=== PATIENT | female | born 1990 | race Caucasian/White ===

== ENCOUNTER 2020-12-26 22:09 | Emergency (ER) | payer MEDICARE, OTHER ==
[~2020-12-26] VITALS: Ht 170.2 cm; Wt 81.8 kg
[~2020-12-26 22:09] MED LIST: HALO10 PO; LITH300C3 PO
[2020-12-26 23:05] LABS: BASOPHILS % (AUTO) 0.3 % (0.0-2.0); HEMATOCRIT 38.7 % (36-46); HEMOGLOBIN 12.7 g/dL (12.0-16.0); LYMPHOCYTES # (AUTO) 2.9 K/uL (1.0-4.8); LYMPHOCYTES % (AUTO) 29.7 % (22.0-44.0); MEAN CORPUSCULAR HEMOGLOBIN 31.4 pg (26.0-34.0); MEAN CORPUSCULAR HGB CONC 32.9 G/dL (31.0-37.0); MEAN CORPUSCULAR VOLUME 95 fL (80-100); MONOCYTES # (AUTO) 0.9 K/uL (0.1-1.0); MONOCYTES % (AUTO) 8.7 % (2.0-9.0); NEUTROPHILS # (AUTO) 5.7 K/uL (1.8-7.7); NEUTROPHILS % (AUTO) 58.3 % (40.0-70.0); PLATELET COUNT (AUTO) 149 K/uL (150-450); RED BLOOD CELL COUNT(AUTO) 4.05 MIL/uL (4.00-5.20); RED CELL DISTRIBUTION WIDTH 14.1 % (11.5-14.5)
[2020-12-26] MEDS ORDERED: HALOPERIDOL 5 MG TABLET PO ONE (23:15)
[2020-12-26 23:16] LABS: ANION GAP 4 mmol/L (8-16); CALCIUM, TOTAL 8.9 mg/dL (8.8-10.5); CARBON DIOXIDE 29 mmol/L (22-29); CHLORIDE 100 mmol/L (98-107); CREATININE 1.07 mg/dL (0.60-1.30); GLOMERULAR FILTR. RATE CALC 60 mL/min (>60); GLUCOSE,RANDOM 116 mg/dL (70-110); POTASSIUM 3.7 mmol/L (3.5-5.1); SODIUM SERUM 133 mmol/L (136-145); UREA NITROGEN, BLOOD 19 mg/dL (7-18)
[2020-12-26 23:22] LABS: ALANINE AMINOTRANSFERASE 69 U/L (12-78); ALBUMIN 3.2 g/dL (3.4-5.0); ALKALINE PHOSPHATASE 64 U/L (46-116); ASPARTATE AMINOTRANSFERASE 46 U/L (15-37); BILIRUBIN,TOTAL 0.4 mg/dL (0.1-1.0); TOTAL PROTEIN, SERUM 6.7 g/dL (6.4-8.2)
[2020-12-26 23:24] LABS: LITHIUM 1.09 mmol/L (0.60-1.20)
[2020-12-27 00:16] VITALS: BP 116/78
== END 2020-12-27 00:42 | disposition home or self-care (01) ==
LOC: EMS 22:11
DX: F31.9 Bipolar disorder, unspecified (principal); F20.9 Schizophrenia, unspecified; Z79.899 Other long term (current) drug therapy
CPT/HCPCS: 36415; 80053; 80178; 85025; 99284; G0480

== ENCOUNTER 2021-05-18 17:26 | Inpatient (IN) | payer MEDICARE, MEDICAID ==
[~2021-05-18] VITALS: Ht 170.2 cm; Wt 86.4 kg
[2021-05-18] MEDS ORDERED: LORazepam 2 MG/ML VIAL IM ONE (18:30)
[2021-05-18] MEDS ORDERED: HALOPERIDOL LACTATE 5 MG/ML VIAL IM ONE (18:30)
[2021-05-18] MEDS ORDERED: DiphenhydrAMINE HCL 50 MG/ML VIAL IM ONE (18:30)
[2021-05-18 20:42] LABS: BASOPHILS % (AUTO) 0.4 % (0.0-2.0); EOSINOPHILS % (AUTO) 0.7 % (1.0-6.0); HEMATOCRIT 36.6 % (36-46); HEMOGLOBIN 12.1 g/dL (12.0-16.0); LYMPHOCYTES # (AUTO) 4.2 K/uL (1.0-4.8); LYMPHOCYTES % (AUTO) 39.7 % (22.0-44.0); MEAN CORPUSCULAR HEMOGLOBIN 31.7 pg (26.0-34.0); MEAN CORPUSCULAR HGB CONC 33.1 G/dL (31.0-37.0); MEAN CORPUSCULAR VOLUME 96 fL (80-100); MONOCYTES # (AUTO) 0.9 K/uL (0.1-1.0); MONOCYTES % (AUTO) 8.3 % (2.0-9.0); NEUTROPHILS # (AUTO) 5.3 K/uL (1.8-7.7); NEUTROPHILS % (AUTO) 50.9 % (40.0-70.0); PLATELET COUNT (AUTO) 218 K/uL (150-450); RED BLOOD CELL COUNT(AUTO) 3.82 MIL/uL (4.00-5.20); RED CELL DISTRIBUTION WIDTH 13.2 % (11.5-14.5)
[2021-05-18] MEDS ORDERED: ZOLPIDEM TARTRATE 10 MG TABLET PO PRN (21:00)
[2021-05-18 21:17] LABS: ANION GAP 3 mmol/L (8-16); CALCIUM, TOTAL 8.8 mg/dL (8.8-10.5); CARBON DIOXIDE 25 mmol/L (22-29); CHLORIDE 109 mmol/L (98-107); CREATININE 0.66 mg/dL (0.60-1.30); GLOMERULAR FILTR. RATE CALC > 60 mL/min (>60); GLUCOSE,RANDOM 93 mg/dL (70-110); SODIUM SERUM 137 mmol/L (136-145); UREA NITROGEN, BLOOD 28 mg/dL (7-18)
[2021-05-18 21:23] LABS: ALANINE AMINOTRANSFERASE 23 U/L (12-78); ALBUMIN 2.9 g/dL (3.4-5.0); ALKALINE PHOSPHATASE 64 U/L (46-116); ASPARTATE AMINOTRANSFERASE 21 U/L (15-37); BILIRUBIN,TOTAL 0.2 mg/dL (0.1-1.0); TOTAL PROTEIN, SERUM 6.6 g/dL (6.4-8.2)
[2021-05-18 22:01] LABS: COVID AG,FIA SOURCE NASOPHARYNGEAL
[2021-05-19 05:44] LABS: CHOL/HDL RATIO 3.8 (3.9-5.7); CHOLESTEROL 165 mg/dL (131-200); HDL CHOLESTEROL 44 mg/dL (40-60); LDL CHOL (CALC.) 89 mg/dL (0-130); TRIGLYCERIDES 161 mg/dL (15-150)
[2021-05-19] MEDS ORDERED: ALBUTEROL SULFATE HFA 90 MCG/PUFF 8 GM INHALER IH ONE (05:49)
[2021-05-19 10:23] VITALS: BP 88/69
[2021-05-19] MEDS ORDERED: PALIPERIDONE PALMITATE 234 MG/1.5 ML SYRINGE IM ONE (10:45)
[2021-05-19] MEDS ORDERED: MAG HYDROX/AL HYDROX/SIMETH ES 30 ML SUSPENSION UDCUP PO PRN (10:45)
[2021-05-19] MEDS ORDERED: GuaiFENesin/D-METHORPHAN [SUGAR-FREE] 200-20MG/10 ML SYRUP UDCUP PO PRN (10:45)
[2021-05-19] MEDS ORDERED: PROMETHAZINE HCL 25 MG TABLET PO PRN (10:45)
[2021-05-19] MEDS ORDERED: LOPERAMIDE HCL 2 MG CAPSULE PO PRN (10:45)
[2021-05-19] MEDS ORDERED: TUBERCULIN, PURIFIED PROTEIN DERIVATIVE 5 TU/0.1 ML SYRINGE ID ONE (10:45)
[2021-05-19] MEDS: OLANZapine 5 MG RAPDIS TABLET PO PRN (12:36)
[2021-05-19] MEDS: LORazepam 2 MG TABLET PO PRN (12:36)
[2021-05-19] MEDS ORDERED: HALOPERIDOL LACTATE 5 MG/ML VIAL IM ONE (14:15)
[2021-05-19] MEDS ORDERED: DiphenhydrAMINE HCL 50 MG/ML VIAL IM ONE (14:15)
[2021-05-19] MEDS ORDERED: LORazepam 2 MG/ML VIAL IM ONE (14:15)
[2021-05-19] MEDS ORDERED: INFLUENZA VIRUS VACCINE QVS 2021-22 (6MO+)/PF 60 MCG/0.5 ML SYRINGE IM. ONE (16:15)
[2021-05-19 16:23] VITALS: BP 109/72
[2021-05-19] MEDS: THIAMINE 100 MG TABLET PO SCH (17:23)
[2021-05-19] MEDS: LITHIUM CARBONATE 300 MG CAPSULE PO SCH (17:24)
[2021-05-19] MEDS: MELATONIN 5 MG TABLET PO SCH (20:47)
[2021-05-19] MEDS ORDERED: OLANZapine 5 MG RAPDIS TABLET PO SCH (21:00)
[2021-05-20 00:37] VITALS: BP 101/69
[2021-05-20 07:45] LABS: BASOPHILS % (AUTO) 0.2 % (0.0-2.0); EOSINOPHILS % (AUTO) 0.9 % (1.0-6.0); HEMATOCRIT 38.4 % (36-46); HEMOGLOBIN 12.5 g/dL (12.0-16.0); LYMPHOCYTES % (AUTO) 23.7 % (22.0-44.0); MEAN CORPUSCULAR HEMOGLOBIN 31.1 pg (26.0-34.0); MEAN CORPUSCULAR HGB CONC 32.6 G/dL (31.0-37.0); MEAN CORPUSCULAR VOLUME 96 fL (80-100); MONOCYTES % (AUTO) 8.2 % (2.0-9.0); NEUTROPHILS # (AUTO) 8.3 K/uL (1.8-7.7); PLATELET COUNT (AUTO) 209 K/uL (150-450); RED BLOOD CELL COUNT(AUTO) 4.01 MIL/uL (4.00-5.20); RED CELL DISTRIBUTION WIDTH 13.1 % (11.5-14.5)
[2021-05-20] MEDS: OMEGA-3/DHA/EPA/FISH OIL 1,000 MG CAPSULE PO SCH (08:07)
[2021-05-20 08:08] LABS: HEMOGLOBIN A1C 5.1 % (3.8-5.6)
[2021-05-20] MEDS: MULTIVITAMINS WITH MINERALS, THERAPEUTIC TABLET PO SCH (08:08)
[2021-05-20] MEDS: FOLIC ACID 1 MG TABLET PO SCH (08:08)
[2021-05-20] MEDS: THIAMINE 100 MG TABLET PO SCH ×2 (08:08→16:27)
[2021-05-20] MEDS: LITHIUM CARBONATE 300 MG CAPSULE PO SCH ×2 (08:08→16:27)
[2021-05-20 08:22] LABS: ALANINE AMINOTRANSFERASE 29 U/L (12-78); ALKALINE PHOSPHATASE 63 U/L (46-116); ANION GAP 11 mmol/L (8-16); ASPARTATE AMINOTRANSFERASE 28 U/L (15-37); BILIRUBIN,TOTAL 0.5 mg/dL (0.1-1.0); CALCIUM, TOTAL 8.8 mg/dL (8.8-10.5); CARBON DIOXIDE 24 mmol/L (22-29); CHLORIDE 106 mmol/L (98-107); CHOL/HDL RATIO 4.1 (3.9-5.7); CHOLESTEROL 181 mg/dL (131-200); CREATININE 0.58 mg/dL (0.60-1.30); FREE T4 (FREE THYROXINE) 0.84 ng/dL (0.76-1.46); GLOMERULAR FILTR. RATE CALC > 60 mL/min (>60); GLUCOSE,RANDOM 83 mg/dL (70-110); HCG,QUANTITATIVE < 1 mIU/mL (0-6); HDL CHOLESTEROL 44 mg/dL (40-60); LDL CHOL (CALC.) 108 mg/dL (0-130); POTASSIUM 4.5 mmol/L (3.5-5.1); SODIUM SERUM 141 mmol/L (136-145); THYROID STIMULATING HORMONE 1.39 uIU/mL (0.36-3.74); TOTAL PROTEIN, SERUM 6.6 g/dL (6.4-8.2); TRIGLYCERIDES 143 mg/dL (15-150); UREA NITROGEN, BLOOD 19 mg/dL (7-18)
[2021-05-20] MEDS: OLANZapine 5 MG RAPDIS TABLET PO PRN ×2 (08:46→17:22)
[2021-05-20] MEDS: LORazepam 2 MG TABLET PO PRN ×2 (08:46→16:27)
[2021-05-20 08:47] VITALS: BP 121/84
[2021-05-20] MEDS: PHENYLEPHRINE/SHK LV/MIN OIL/PET 57 GM OINTMENT TP PRN (13:45)
[2021-05-20 16:17] VITALS: BP 100/60
[2021-05-20] MEDS: MAGNESIUM HYDROXIDE SUSPENSION 30 ML UDCUP PO PRN (16:34)
[2021-05-20] MEDS ORDERED: HALOPERIDOL LACTATE 5 MG/ML VIAL ONE (17:44)
[2021-05-20] MEDS ORDERED: DiphenhydrAMINE HCL 50 MG/ML VIAL IM ONE (17:45)
[2021-05-20] MEDS ORDERED: LORazepam 2 MG/ML VIAL IM ONE (17:45)
[2021-05-20] MEDS ORDERED: HALOPERIDOL LACTATE 5 MG/ML VIAL IM ONE (17:45)
[2021-05-20] MEDS: MELATONIN 5 MG TABLET PO SCH (20:27)
[2021-05-21 00:54] VITALS: BP 112/72
[2021-05-21] MEDS: PHENYLEPHRINE/SHK LV/MIN OIL/PET 57 GM OINTMENT TP PRN (06:23)
[2021-05-21 08:20] VITALS: BP 95/60
[2021-05-21] MEDS: FOLIC ACID 1 MG TABLET PO SCH (08:42)
[2021-05-21] MEDS: OMEGA-3/DHA/EPA/FISH OIL 1,000 MG CAPSULE PO SCH (08:42)
[2021-05-21] MEDS: MULTIVITAMINS WITH MINERALS, THERAPEUTIC TABLET PO SCH (08:43)
[2021-05-21] MEDS: THIAMINE 100 MG TABLET PO SCH ×2 (08:43→16:57)
[2021-05-21] MEDS: LITHIUM CARBONATE 300 MG CAPSULE PO SCH ×2 (08:44→16:57)
[2021-05-21] MEDS: OLANZapine 5 MG RAPDIS TABLET PO PRN ×3 (08:45→20:12)
[2021-05-21] MEDS: MAGNESIUM HYDROXIDE SUSPENSION 30 ML UDCUP PO PRN (09:05)
[2021-05-21] MEDS: LORazepam 2 MG TABLET PO PRN (11:47)
[2021-05-21] MEDS: HydrOXYzine PAMOATE 50 MG CAPSULE PO PRN ×2 (11:47→16:57)
[2021-05-21] MEDS: GABAPENTIN 300 MG CAPSULE PO PRN (16:05)
[2021-05-21 16:36] VITALS: BP 110/75
[2021-05-21] MEDS: MELATONIN 5 MG TABLET PO SCH (20:12)
[2021-05-22] MEDS: HydrOXYzine PAMOATE 50 MG CAPSULE PO PRN ×3 (01:50→23:48)
[2021-05-22] MEDS: OLANZapine 5 MG RAPDIS TABLET PO PRN ×2 (01:50→20:31)
[2021-05-22 02:41] VITALS: BP 106/62
[2021-05-22 08:01] LABS: BASOPHILS % (AUTO) 0.4 % (0.0-2.0); EOSINOPHILS % (AUTO) 0.9 % (1.0-6.0); HEMATOCRIT 36.5 % (36-46); HEMOGLOBIN 12.3 g/dL (12.0-16.0); LYMPHOCYTES % (AUTO) 32.6 % (22.0-44.0); MEAN CORPUSCULAR HGB CONC 33.6 G/dL (31.0-37.0); MEAN CORPUSCULAR VOLUME 95 fL (80-100); MONOCYTES # (AUTO) 0.7 K/uL (0.1-1.0); MONOCYTES % (AUTO) 7.3 % (2.0-9.0); NEUTROPHILS # (AUTO) 5.3 K/uL (1.8-7.7); NEUTROPHILS % (AUTO) 58.8 % (40.0-70.0); PLATELET COUNT (AUTO) 207 K/uL (150-450); RED BLOOD CELL COUNT(AUTO) 3.83 MIL/uL (4.00-5.20); RED CELL DISTRIBUTION WIDTH 12.9 % (11.5-14.5)
[2021-05-22] MEDS: FOLIC ACID 1 MG TABLET PO SCH (08:15)
[2021-05-22] MEDS: MULTIVITAMINS WITH MINERALS, THERAPEUTIC TABLET PO SCH (08:15)
[2021-05-22] MEDS: THIAMINE 100 MG TABLET PO SCH ×2 (08:15→16:55)
[2021-05-22] MEDS: OMEGA-3/DHA/EPA/FISH OIL 1,000 MG CAPSULE PO SCH (08:15)
[2021-05-22] MEDS: LITHIUM CARBONATE 300 MG CAPSULE PO SCH ×2 (08:15→16:55)
[2021-05-22 08:31] VITALS: BP 118/67
[2021-05-22] MEDS ORDERED: CloZAPine 25 MG TABLET PO SCH (09:00)
[2021-05-22] MEDS: MAGNESIUM HYDROXIDE SUSPENSION 30 ML UDCUP PO PRN (10:12)
[2021-05-22] MEDS: GABAPENTIN 300 MG CAPSULE PO PRN (13:53)
[2021-05-22 16:22] VITALS: BP 111/73
[2021-05-22] MEDS: ACETAMINOPHEN 325 MG TABLET PO PRN (17:18)
[2021-05-22] MEDS: GABAPENTIN 400 MG CAPSULE PO SCH (17:18)
[2021-05-22] MEDS: MELATONIN 5 MG TABLET PO SCH (20:31)
[2021-05-22] MEDS: NICOTINE POLACRILEX 2 MG LOZENGE PO PRN (20:32)
[2021-05-23] MEDS: OLANZapine 5 MG RAPDIS TABLET PO PRN ×3 (00:31→12:32)
[2021-05-23 01:59] VITALS: BP 108/71
[2021-05-23] MEDS: OMEGA-3/DHA/EPA/FISH OIL 1,000 MG CAPSULE PO SCH (08:24)
[2021-05-23] MEDS: LITHIUM CARBONATE 300 MG CAPSULE PO SCH ×3 (08:24→16:24)
[2021-05-23] MEDS: FOLIC ACID 1 MG TABLET PO SCH (08:25)
[2021-05-23] MEDS: GABAPENTIN 400 MG CAPSULE PO SCH ×3 (08:25→16:24)
[2021-05-23] MEDS: THIAMINE 100 MG TABLET PO SCH ×2 (08:25→16:24)
[2021-05-23] MEDS: MULTIVITAMINS WITH MINERALS, THERAPEUTIC TABLET PO SCH (08:25)
[2021-05-23] MEDS ORDERED: PALIPERIDONE PALMITATE 156 MG/ML SYRINGE IM ONE (09:00)
[2021-05-23] MEDS ORDERED: CloZAPine 25 MG TABLET PO SCH ×2 (09:00→21:00)
[2021-05-23] MEDS: HydrOXYzine PAMOATE 50 MG CAPSULE PO PRN ×2 (10:08→14:30)
[2021-05-23] MEDS: ACETAMINOPHEN 325 MG TABLET PO PRN (14:30)
[2021-05-23] MEDS: MELATONIN 5 MG TABLET PO SCH (20:27)
[2021-05-24 00:12] VITALS: BP 100/73
[2021-05-24] MEDS: HydrOXYzine PAMOATE 50 MG CAPSULE PO PRN (03:23)
[2021-05-24] MEDS: ACETAMINOPHEN 325 MG TABLET PO PRN (06:29)
[2021-05-24] MEDS: GABAPENTIN 400 MG CAPSULE PO SCH ×3 (08:44→15:56)
[2021-05-24] MEDS: LITHIUM CARBONATE 300 MG CAPSULE PO SCH ×3 (08:45→15:56)
[2021-05-24] MEDS: MULTIVITAMINS WITH MINERALS, THERAPEUTIC TABLET PO SCH (08:45)
[2021-05-24] MEDS: THIAMINE 100 MG TABLET PO SCH ×2 (08:45→15:56)
[2021-05-24] MEDS: OMEGA-3/DHA/EPA/FISH OIL 1,000 MG CAPSULE PO SCH (08:46)
[2021-05-24] MEDS: FOLIC ACID 1 MG TABLET PO SCH (08:48)
[2021-05-24 08:50] VITALS: BP 120/74
[2021-05-24] MEDS ORDERED: CloZAPine 25 MG TABLET PO SCH ×2 (09:00→21:00)
[2021-05-24] MEDS: OLANZapine 5 MG RAPDIS TABLET PO PRN ×2 (11:43→15:56)
[2021-05-24] MEDS: GABAPENTIN 300 MG CAPSULE PO PRN (14:23)
[2021-05-24] MEDS: MAGNESIUM HYDROXIDE SUSPENSION 30 ML UDCUP PO PRN (16:02)
[2021-05-24 16:19] VITALS: BP 123/75
[2021-05-24] MEDS: MELATONIN 5 MG TABLET PO SCH (20:21)
[2021-05-25 00:26] VITALS: BP 114/71
[2021-05-25] MEDS: OLANZapine 5 MG RAPDIS TABLET PO PRN ×3 (03:44→13:48)
[2021-05-25] MEDS: MULTIVITAMINS WITH MINERALS, THERAPEUTIC TABLET PO SCH (08:09)
[2021-05-25] MEDS: OMEGA-3/DHA/EPA/FISH OIL 1,000 MG CAPSULE PO SCH (08:09)
[2021-05-25] MEDS: GABAPENTIN 400 MG CAPSULE PO SCH ×3 (08:09→16:39)
[2021-05-25] MEDS: FOLIC ACID 1 MG TABLET PO SCH (08:09)
[2021-05-25] MEDS: CloZAPine 25 MG TABLET PO SCH ×2 (08:09→20:39)
[2021-05-25] MEDS: THIAMINE 100 MG TABLET PO SCH ×2 (08:09→16:39)
[2021-05-25] MEDS: LITHIUM CARBONATE 300 MG CAPSULE PO SCH ×3 (08:09→16:39)
[2021-05-25 08:31] VITALS: BP 113/68
[2021-05-25] MEDS: MAGNESIUM HYDROXIDE SUSPENSION 30 ML UDCUP PO PRN (09:09)
[2021-05-25] MEDS ORDERED: TUBERCULIN, PURIFIED PROTEIN DERIVATIVE 5 TU/0.1 ML SYRINGE ID ONE (12:00)
[2021-05-25 16:20] VITALS: BP 123/63
[2021-05-25] MEDS: ACETAMINOPHEN 325 MG TABLET PO PRN (16:40)
[2021-05-25] MEDS: MELATONIN 5 MG TABLET PO SCH (20:39)
[2021-05-26 00:32] VITALS: BP 116/70
[2021-05-26] MEDS: ACETAMINOPHEN 325 MG TABLET PO PRN (02:36)
[2021-05-26] MEDS: OLANZapine 5 MG RAPDIS TABLET PO PRN ×2 (02:37→08:41)
[2021-05-26 07:55] LABS: ALBUMIN 3.3 g/dL (3.4-5.0)
[2021-05-26 07:56] LABS: LITHIUM 1.32 mmol/L (0.60-1.20)
[2021-05-26] MEDS: CloZAPine 25 MG TABLET PO SCH ×2 (08:39→20:16)
[2021-05-26] MEDS: LITHIUM CARBONATE 300 MG CAPSULE PO SCH ×3 (08:40→16:03)
[2021-05-26] MEDS: GABAPENTIN 400 MG CAPSULE PO SCH ×3 (08:40→16:03)
[2021-05-26] MEDS: MULTIVITAMINS WITH MINERALS, THERAPEUTIC TABLET PO SCH (08:40)
[2021-05-26] MEDS: OMEGA-3/DHA/EPA/FISH OIL 1,000 MG CAPSULE PO SCH (08:40)
[2021-05-26] MEDS: THIAMINE 100 MG TABLET PO SCH ×2 (08:40→16:03)
[2021-05-26] MEDS: FOLIC ACID 1 MG TABLET PO SCH (08:40)
[2021-05-26] MEDS: GABAPENTIN 300 MG CAPSULE PO PRN ×2 (12:48→18:27)
[2021-05-26] MEDS: QUEtiapine FUMARATE 25 MG TABLET PO SCH (16:03)
[2021-05-26 16:29] VITALS: BP 121/73
[2021-05-26] MEDS: QUEtiapine FUMARATE 100 MG TABLET PO PRN (18:27)
[2021-05-26] MEDS: MELATONIN 5 MG TABLET PO SCH (20:16)
[2021-05-27 00:24] VITALS: BP 114/70
[2021-05-27] MEDS: LITHIUM CARBONATE 300 MG CAPSULE PO SCH (08:19)
[2021-05-27] MEDS: THIAMINE 100 MG TABLET PO SCH ×2 (08:19→16:14)
[2021-05-27] MEDS: OMEGA-3/DHA/EPA/FISH OIL 1,000 MG CAPSULE PO SCH (08:19)
[2021-05-27] MEDS: QUEtiapine FUMARATE 25 MG TABLET PO SCH ×3 (08:19→16:15)
[2021-05-27] MEDS: MULTIVITAMINS WITH MINERALS, THERAPEUTIC TABLET PO SCH (08:19)
[2021-05-27] MEDS: GABAPENTIN 400 MG CAPSULE PO SCH ×3 (08:19→16:14)
[2021-05-27] MEDS: FOLIC ACID 1 MG TABLET PO SCH (08:19)
[2021-05-27 08:33] VITALS: BP 118/74
[2021-05-27 09:00] VITALS: BP 118/74
[2021-05-27] MEDS ORDERED: CloZAPine 25 MG TABLET PO SCH (09:00)
[2021-05-27] MEDS: QUEtiapine FUMARATE 100 MG TABLET PO PRN ×2 (09:36→16:48)
[2021-05-27 16:14] VITALS: BP 120/83
[2021-05-27] MEDS: NICOTINE POLACRILEX 2 MG LOZENGE PO PRN (16:15)
[2021-05-27] MEDS: MAGNESIUM HYDROXIDE SUSPENSION 30 ML UDCUP PO PRN (19:44)
[2021-05-27] MEDS: MELATONIN 5 MG TABLET PO SCH (20:05)
[2021-05-27] MEDS ORDERED: CloZAPine 100 MG TABLET PO SCH (21:00)
[2021-05-28 02:19] VITALS: BP 92/55
[2021-05-28] MEDS: QUEtiapine FUMARATE 25 MG TABLET PO SCH ×3 (08:09→16:15)
[2021-05-28] MEDS: GABAPENTIN 400 MG CAPSULE PO SCH ×3 (08:09→16:15)
[2021-05-28] MEDS: OMEGA-3/DHA/EPA/FISH OIL 1,000 MG CAPSULE PO SCH (08:09)
[2021-05-28] MEDS: THIAMINE 100 MG TABLET PO SCH ×2 (08:09→16:15)
[2021-05-28] MEDS: FOLIC ACID 1 MG TABLET PO SCH (08:10)
[2021-05-28] MEDS: MULTIVITAMINS WITH MINERALS, THERAPEUTIC TABLET PO SCH (08:10)
[2021-05-28 08:20] VITALS: BP 114/76
[2021-05-28] MEDS ORDERED: CloZAPine 25 MG TABLET PO SCH (09:00)
[2021-05-28] MEDS: MAGNESIUM HYDROXIDE SUSPENSION 30 ML UDCUP PO PRN (09:31)
[2021-05-28] MEDS: QUEtiapine FUMARATE 100 MG TABLET PO PRN ×2 (09:31→20:19)
[2021-05-28 16:12] VITALS: BP 112/69
[2021-05-28] MEDS: LITHIUM CARBONATE 300 MG CAPSULE PO SCH (16:15)
[2021-05-28] MEDS: MELATONIN 5 MG TABLET PO SCH (20:19)
[2021-05-28] MEDS ORDERED: CloZAPine 100 MG TABLET PO SCH (21:00)
[2021-05-29 00:29] VITALS: BP 110/78
[2021-05-29 08:11] VITALS: BP 103/73
[2021-05-29] MEDS: LITHIUM CARBONATE 300 MG CAPSULE PO SCH ×3 (08:31→16:30)
[2021-05-29] MEDS: QUEtiapine FUMARATE 25 MG TABLET PO SCH ×3 (08:31→16:30)
[2021-05-29] MEDS: OMEGA-3/DHA/EPA/FISH OIL 1,000 MG CAPSULE PO SCH (08:31)
[2021-05-29] MEDS: GABAPENTIN 400 MG CAPSULE PO SCH ×3 (08:31→16:30)
[2021-05-29] MEDS: FOLIC ACID 1 MG TABLET PO SCH (08:31)
[2021-05-29] MEDS: THIAMINE 100 MG TABLET PO SCH (08:31)
[2021-05-29] MEDS: MULTIVITAMINS WITH MINERALS, THERAPEUTIC TABLET PO SCH (08:31)
[2021-05-29] MEDS ORDERED: CloZAPine 25 MG TABLET PO SCH (09:00)
[2021-05-29] MEDS: QUEtiapine FUMARATE 100 MG TABLET PO PRN ×2 (09:06→18:39)
[2021-05-29 16:20] VITALS: BP 116/67
[2021-05-29] MEDS: ACETAMINOPHEN 325 MG TABLET PO PRN (18:02)
[2021-05-29] MEDS: MELATONIN 5 MG TABLET PO SCH (20:34)
[2021-05-29] MEDS ORDERED: CloZAPine 100 MG TABLET PO SCH (21:00)
[2021-05-30 00:07] VITALS: BP 114/76
[2021-05-30] MEDS: ACETAMINOPHEN 325 MG TABLET PO PRN (06:29)
[2021-05-30 07:15] LABS: BASOPHILS % (AUTO) 0.5 % (0.0-2.0); EOSINOPHILS % (AUTO) 4.1 % (1.0-6.0); HEMATOCRIT 34.7 % (36-46); HEMOGLOBIN 11.6 g/dL (12.0-16.0); LYMPHOCYTES % (AUTO) 40.3 % (22.0-44.0); MEAN CORPUSCULAR HEMOGLOBIN 31.9 pg (26.0-34.0); MEAN CORPUSCULAR HGB CONC 33.6 G/dL (31.0-37.0); MEAN CORPUSCULAR VOLUME 95 fL (80-100); MONOCYTES # (AUTO) 0.5 K/uL (0.1-1.0); MONOCYTES % (AUTO) 7.2 % (2.0-9.0); NEUTROPHILS # (AUTO) 3.6 K/uL (1.8-7.7); NEUTROPHILS % (AUTO) 47.9 % (40.0-70.0); PLATELET COUNT (AUTO) 266 K/uL (150-450); RED BLOOD CELL COUNT(AUTO) 3.65 MIL/uL (4.00-5.20); RED CELL DISTRIBUTION WIDTH 12.3 % (11.5-14.5)
[2021-05-30] MEDS: GABAPENTIN 400 MG CAPSULE PO SCH ×3 (08:00→16:40)
[2021-05-30] MEDS: OMEGA-3/DHA/EPA/FISH OIL 1,000 MG CAPSULE PO SCH (08:00)
[2021-05-30] MEDS: CloZAPine 100 MG TABLET PO SCH ×2 (08:00→20:58)
[2021-05-30] MEDS: LITHIUM CARBONATE 300 MG CAPSULE PO SCH ×3 (08:00→16:40)
[2021-05-30] MEDS: QUEtiapine FUMARATE 25 MG TABLET PO SCH ×3 (08:00→16:40)
[2021-05-30] MEDS: MULTIVITAMINS WITH MINERALS, THERAPEUTIC TABLET PO SCH (08:01)
[2021-05-30] MEDS: MAGNESIUM HYDROXIDE SUSPENSION 30 ML UDCUP PO PRN (08:05)
[2021-05-30 08:26] VITALS: BP 103/66
[2021-05-30] MEDS: QUEtiapine FUMARATE 100 MG TABLET PO PRN (09:33)
[2021-05-30] MEDS: GABAPENTIN 300 MG CAPSULE PO PRN ×3 (10:38→20:57)
[2021-05-30 16:07] VITALS: BP 98/60
[2021-05-30] MEDS: MELATONIN 5 MG TABLET PO SCH (20:58)
[2021-05-31 01:08] VITALS: BP 105/68
[2021-05-31 08:37] VITALS: BP 114/71
[2021-05-31] MEDS: OMEGA-3/DHA/EPA/FISH OIL 1,000 MG CAPSULE PO SCH (08:55)
[2021-05-31] MEDS: CloZAPine 100 MG TABLET PO SCH ×2 (08:56→20:40)
[2021-05-31] MEDS: QUEtiapine FUMARATE 25 MG TABLET PO SCH ×3 (08:56→16:01)
[2021-05-31] MEDS: MULTIVITAMINS WITH MINERALS, THERAPEUTIC TABLET PO SCH (08:57)
[2021-05-31] MEDS: LITHIUM CARBONATE 300 MG CAPSULE PO SCH ×3 (08:57→16:01)
[2021-05-31] MEDS: GABAPENTIN 300 MG CAPSULE PO PRN ×2 (08:57→10:24)
[2021-05-31] MEDS: GABAPENTIN 400 MG CAPSULE PO SCH ×3 (09:07→16:01)
[2021-05-31] MEDS: QUEtiapine FUMARATE 100 MG TABLET PO PRN (12:05)
[2021-05-31 16:15] VITALS: BP 110/61
[2021-05-31] MEDS: MELATONIN 5 MG TABLET PO SCH (20:40)
[2021-06-01 00:40] VITALS: BP 116/68
[2021-06-01] MEDS: LITHIUM CARBONATE 300 MG CAPSULE PO SCH ×3 (08:08→16:03)
[2021-06-01] MEDS: MULTIVITAMINS WITH MINERALS, THERAPEUTIC TABLET PO SCH (08:08)
[2021-06-01] MEDS: OMEGA-3/DHA/EPA/FISH OIL 1,000 MG CAPSULE PO SCH (08:08)
[2021-06-01] MEDS: QUEtiapine FUMARATE 25 MG TABLET PO SCH ×3 (08:08→16:03)
[2021-06-01] MEDS: GABAPENTIN 400 MG CAPSULE PO SCH ×3 (08:09→16:03)
[2021-06-01 08:59] VITALS: BP 121/68
[2021-06-01] MEDS ORDERED: CloZAPine 25 MG TABLET PO SCH (09:00)
[2021-06-01 16:12] VITALS: BP 117/71
[2021-06-01] MEDS: QUEtiapine FUMARATE 100 MG TABLET PO PRN (20:06)
[2021-06-01] MEDS: MELATONIN 5 MG TABLET PO SCH (20:06)
[2021-06-01] MEDS ORDERED: CloZAPine 100 MG TABLET PO SCH (21:00)
[2021-06-02 02:19] VITALS: BP 120/62
[2021-06-02] MEDS: QUEtiapine FUMARATE 100 MG TABLET PO PRN (06:34)
[2021-06-02 08:19] VITALS: BP 100/65
[2021-06-02] MEDS: MULTIVITAMINS WITH MINERALS, THERAPEUTIC TABLET PO SCH (08:55)
[2021-06-02] MEDS: LITHIUM CARBONATE 300 MG CAPSULE PO SCH ×3 (08:55→16:28)
[2021-06-02] MEDS: GABAPENTIN 400 MG CAPSULE PO SCH ×3 (08:55→16:28)
[2021-06-02] MEDS: OMEGA-3/DHA/EPA/FISH OIL 1,000 MG CAPSULE PO SCH (08:56)
[2021-06-02] MEDS: QUEtiapine FUMARATE 25 MG TABLET PO SCH ×3 (08:56→16:28)
[2021-06-02] MEDS ORDERED: CloZAPine 25 MG TABLET PO SCH (09:00)
[2021-06-02 16:14] VITALS: BP 100/63
[2021-06-02] MEDS: MELATONIN 5 MG TABLET PO SCH (20:08)
[2021-06-02] MEDS ORDERED: CloZAPine 100 MG TABLET PO SCH (21:00)
[2021-06-03 01:04] VITALS: BP 102/70
[2021-06-03] MEDS: QUEtiapine FUMARATE 25 MG TABLET PO SCH ×3 (08:02→16:14)
[2021-06-03] MEDS: GABAPENTIN 400 MG CAPSULE PO SCH ×3 (08:03→16:13)
[2021-06-03] MEDS: CloZAPine 100 MG TABLET PO SCH ×2 (08:03→20:03)
[2021-06-03] MEDS: MULTIVITAMINS WITH MINERALS, THERAPEUTIC TABLET PO SCH (08:03)
[2021-06-03] MEDS: LITHIUM CARBONATE 300 MG CAPSULE PO SCH ×3 (08:03→16:13)
[2021-06-03] MEDS: OMEGA-3/DHA/EPA/FISH OIL 1,000 MG CAPSULE PO SCH (08:04)
[2021-06-03 08:17] VITALS: BP 100/56
[2021-06-03] MEDS: QUEtiapine FUMARATE 100 MG TABLET PO PRN (09:57)
[2021-06-03 10:20] VITALS: BP 110/74
[2021-06-03 16:10] VITALS: BP 101/66
[2021-06-03] MEDS: MELATONIN 5 MG TABLET PO SCH (20:02)
[2021-06-03] MEDS: DOCUSATE SODIUM 250 MG CAPSULE PO PRN (20:03)
[2021-06-04 01:26] VITALS: BP 100/70
[2021-06-04 08:03] LABS: COVID AG,FIA SOURCE NASAL SWAB
[2021-06-04] MEDS: CloZAPine 100 MG TABLET PO SCH ×2 (08:27→20:46)
[2021-06-04] MEDS: OMEGA-3/DHA/EPA/FISH OIL 1,000 MG CAPSULE PO SCH (08:27)
[2021-06-04] MEDS: LITHIUM CARBONATE 300 MG CAPSULE PO SCH ×3 (08:27→16:00)
[2021-06-04] MEDS: GABAPENTIN 400 MG CAPSULE PO SCH ×3 (08:27→16:00)
[2021-06-04] MEDS: QUEtiapine FUMARATE 25 MG TABLET PO SCH ×3 (08:27→16:00)
[2021-06-04] MEDS: MULTIVITAMINS WITH MINERALS, THERAPEUTIC TABLET PO SCH (08:27)
[2021-06-04 08:37] VITALS: BP 100/59
[2021-06-04 10:00] VITALS: BP 108/68
[2021-06-04 16:06] VITALS: BP 101/65
[2021-06-04] MEDS: MELATONIN 5 MG TABLET PO SCH (20:46)
[2021-06-05 07:57] LABS: BASOPHILS % (AUTO) 0.5 % (0.0-2.0); EOSINOPHILS % (AUTO) 5.2 % (1.0-6.0); HEMATOCRIT 35.3 % (36-46); HEMOGLOBIN 12.1 g/dL (12.0-16.0); LYMPHOCYTES % (AUTO) 42.2 % (22.0-44.0); MEAN CORPUSCULAR HEMOGLOBIN 32.3 pg (26.0-34.0); MEAN CORPUSCULAR HGB CONC 34.2 G/dL (31.0-37.0); MEAN CORPUSCULAR VOLUME 94 fL (80-100); MONOCYTES # (AUTO) 0.7 K/uL (0.1-1.0); MONOCYTES % (AUTO) 6.9 % (2.0-9.0); NEUTROPHILS # (AUTO) 4.3 K/uL (1.8-7.7); NEUTROPHILS % (AUTO) 45.2 % (40.0-70.0); PLATELET COUNT (AUTO) 286 K/uL (150-450); RED BLOOD CELL COUNT(AUTO) 3.74 MIL/uL (4.00-5.20); RED CELL DISTRIBUTION WIDTH 12.3 % (11.5-14.5)
[2021-06-05 08:17] VITALS: BP 92/62
[2021-06-05] MEDS: QUEtiapine FUMARATE 25 MG TABLET PO SCH ×3 (09:01→16:13)
[2021-06-05] MEDS: GABAPENTIN 400 MG CAPSULE PO SCH ×3 (09:01→16:13)
[2021-06-05] MEDS: LITHIUM CARBONATE 300 MG CAPSULE PO SCH ×3 (09:01→16:13)
[2021-06-05] MEDS: MULTIVITAMINS WITH MINERALS, THERAPEUTIC TABLET PO SCH (09:02)
[2021-06-05] MEDS: CloZAPine 100 MG TABLET PO SCH ×2 (09:02→20:27)
[2021-06-05] MEDS: OMEGA-3/DHA/EPA/FISH OIL 1,000 MG CAPSULE PO SCH (09:02)
[2021-06-05 16:14] VITALS: BP 98/68
[2021-06-05] MEDS: MELATONIN 5 MG TABLET PO SCH (20:26)
[2021-06-05] MEDS: QUEtiapine FUMARATE 100 MG TABLET PO PRN (20:27)
[2021-06-05] MEDS: DOCUSATE SODIUM 250 MG CAPSULE PO SCH (21:00)
[2021-06-06 01:43] VITALS: BP 102/66
[2021-06-06] MEDS: LITHIUM CARBONATE 300 MG CAPSULE PO SCH ×3 (08:05→16:21)
[2021-06-06] MEDS: GABAPENTIN 400 MG CAPSULE PO SCH ×3 (08:05→16:21)
[2021-06-06] MEDS: OMEGA-3/DHA/EPA/FISH OIL 1,000 MG CAPSULE PO SCH (08:05)
[2021-06-06] MEDS: QUEtiapine FUMARATE 25 MG TABLET PO SCH ×3 (08:05→16:22)
[2021-06-06] MEDS: CloZAPine 100 MG TABLET PO SCH ×2 (08:05→20:21)
[2021-06-06] MEDS: MULTIVITAMINS WITH MINERALS, THERAPEUTIC TABLET PO SCH (08:05)
[2021-06-06 08:42] VITALS: BP 105/74
[2021-06-06] MEDS: QUEtiapine FUMARATE 100 MG TABLET PO PRN (13:33)
[2021-06-06 16:12] VITALS: BP 111/75
[2021-06-06] MEDS: DOCUSATE SODIUM 250 MG CAPSULE PO SCH (17:30)
[2021-06-06] MEDS: MELATONIN 5 MG TABLET PO SCH (20:21)
[2021-06-07 00:34] VITALS: BP 102/71
[2021-06-07] MEDS: ACETAMINOPHEN 325 MG TABLET PO PRN (06:28)
[2021-06-07 06:30] VITALS: BP 115/72
[2021-06-07] MEDS: CloZAPine 100 MG TABLET PO SCH ×2 (08:10→20:08)
[2021-06-07] MEDS: GABAPENTIN 400 MG CAPSULE PO SCH ×3 (08:11→16:06)
[2021-06-07] MEDS: QUEtiapine FUMARATE 25 MG TABLET PO SCH ×3 (08:11→16:06)
[2021-06-07] MEDS: OMEGA-3/DHA/EPA/FISH OIL 1,000 MG CAPSULE PO SCH (08:11)
[2021-06-07] MEDS: MULTIVITAMINS WITH MINERALS, THERAPEUTIC TABLET PO SCH (08:11)
[2021-06-07] MEDS: LITHIUM CARBONATE 300 MG CAPSULE PO SCH ×3 (08:11→16:06)
[2021-06-07] MEDS: DOCUSATE SODIUM 250 MG CAPSULE PO PRN (08:21)
[2021-06-07 08:42] VITALS: BP 113/71
[2021-06-07 16:21] VITALS: BP 116/72
[2021-06-07] MEDS: QUEtiapine FUMARATE 100 MG TABLET PO PRN (20:08)
[2021-06-07] MEDS: MELATONIN 5 MG TABLET PO SCH (20:11)
[2021-06-07] MEDS: DOCUSATE SODIUM 250 MG CAPSULE PO SCH (20:12)
[2021-06-08 00:29] VITALS: BP 110/69
[2021-06-08] MEDS: OMEGA-3/DHA/EPA/FISH OIL 1,000 MG CAPSULE PO SCH (08:23)
[2021-06-08] MEDS: QUEtiapine FUMARATE 25 MG TABLET PO SCH ×3 (08:23→16:40)
[2021-06-08] MEDS: GABAPENTIN 400 MG CAPSULE PO SCH ×3 (08:23→16:40)
[2021-06-08] MEDS: LITHIUM CARBONATE 300 MG CAPSULE PO SCH ×3 (08:23→16:40)
[2021-06-08] MEDS: CloZAPine 100 MG TABLET PO SCH ×2 (08:23→20:05)
[2021-06-08] MEDS: MULTIVITAMINS WITH MINERALS, THERAPEUTIC TABLET PO SCH (08:23)
[2021-06-08 08:29] VITALS: BP 105/71
[2021-06-08 16:10] VITALS: BP 128/60
[2021-06-08] MEDS: DOCUSATE SODIUM 250 MG CAPSULE PO SCH (20:05)
[2021-06-08] MEDS: MELATONIN 5 MG TABLET PO SCH (20:05)
[2021-06-09 01:33] VITALS: BP 103/61
[2021-06-09 08:26] VITALS: BP 110/69
[2021-06-09] MEDS: OMEGA-3/DHA/EPA/FISH OIL 1,000 MG CAPSULE PO SCH (09:34)
[2021-06-09] MEDS: LITHIUM CARBONATE 300 MG CAPSULE PO SCH ×3 (09:34→16:23)
[2021-06-09] MEDS: MULTIVITAMINS WITH MINERALS, THERAPEUTIC TABLET PO SCH (09:34)
[2021-06-09] MEDS: QUEtiapine FUMARATE 25 MG TABLET PO SCH ×3 (09:34→16:23)
[2021-06-09] MEDS: GABAPENTIN 400 MG CAPSULE PO SCH ×3 (09:34→16:23)
[2021-06-09] MEDS: CloZAPine 100 MG TABLET PO SCH ×2 (09:34→19:41)
[2021-06-09 16:17] VITALS: BP 110/72
[2021-06-09] MEDS: DOCUSATE SODIUM 250 MG CAPSULE PO SCH (19:40)
[2021-06-09] MEDS: MELATONIN 5 MG TABLET PO SCH (19:41)
[2021-06-10 01:35] VITALS: BP 104/74
[2021-06-10] MEDS: CloZAPine 100 MG TABLET PO SCH ×2 (08:38→20:08)
[2021-06-10] MEDS: GABAPENTIN 400 MG CAPSULE PO SCH ×3 (08:38→16:17)
[2021-06-10] MEDS: LITHIUM CARBONATE 300 MG CAPSULE PO SCH ×3 (08:39→16:17)
[2021-06-10] MEDS: MULTIVITAMINS WITH MINERALS, THERAPEUTIC TABLET PO SCH (08:39)
[2021-06-10] MEDS: QUEtiapine FUMARATE 25 MG TABLET PO SCH ×3 (08:39→16:17)
[2021-06-10] MEDS: OMEGA-3/DHA/EPA/FISH OIL 1,000 MG CAPSULE PO SCH (08:39)
[2021-06-10 16:16] VITALS: BP 129/76
[2021-06-10] MEDS: MELATONIN 5 MG TABLET PO SCH (20:08)
[2021-06-11 02:25] VITALS: BP 118/73
[2021-06-11 08:26] VITALS: BP 121/64
[2021-06-11] MEDS: DOCUSATE SODIUM 250 MG CAPSULE PO SCH ×2 (08:45→16:10)
[2021-06-11] MEDS: QUEtiapine FUMARATE 25 MG TABLET PO SCH ×3 (08:45→16:10)
[2021-06-11] MEDS: GABAPENTIN 400 MG CAPSULE PO SCH ×3 (08:45→16:10)
[2021-06-11] MEDS: OMEGA-3/DHA/EPA/FISH OIL 1,000 MG CAPSULE PO SCH (08:45)
[2021-06-11] MEDS: CloZAPine 100 MG TABLET PO SCH ×2 (08:45→20:06)
[2021-06-11] MEDS: MULTIVITAMINS WITH MINERALS, THERAPEUTIC TABLET PO SCH (08:45)
[2021-06-11] MEDS: LITHIUM CARBONATE 300 MG CAPSULE PO SCH ×3 (08:45→16:10)
[2021-06-11 16:21] VITALS: BP 99/61
[2021-06-11] MEDS: MELATONIN 5 MG TABLET PO SCH (20:06)
[2021-06-11] MEDS: QUEtiapine FUMARATE 100 MG TABLET PO PRN (20:06)
[2021-06-12 03:32] VITALS: BP 102/67
[2021-06-12 08:04] LABS: BASOPHILS % (AUTO) 0.4 % (0.0-2.0); EOSINOPHILS % (AUTO) 3.9 % (1.0-6.0); HEMATOCRIT 36.7 % (36-46); HEMOGLOBIN 12.4 g/dL (12.0-16.0); LYMPHOCYTES # (AUTO) 4.4 K/uL (1.0-4.8); MEAN CORPUSCULAR HEMOGLOBIN 32.2 pg (26.0-34.0); MEAN CORPUSCULAR HGB CONC 33.8 G/dL (31.0-37.0); MEAN CORPUSCULAR VOLUME 95 fL (80-100); MONOCYTES # (AUTO) 0.6 K/uL (0.1-1.0); MONOCYTES % (AUTO) 6.3 % (2.0-9.0); NEUTROPHILS # (AUTO) 4.4 K/uL (1.8-7.7); NEUTROPHILS % (AUTO) 44.4 % (40.0-70.0); PLATELET COUNT (AUTO) 352 K/uL (150-450); RED BLOOD CELL COUNT(AUTO) 3.86 MIL/uL (4.00-5.20); RED CELL DISTRIBUTION WIDTH 12.3 % (11.5-14.5)
[2021-06-12] MEDS: DOCUSATE SODIUM 250 MG CAPSULE PO SCH ×2 (08:16→17:16)
[2021-06-12] MEDS: QUEtiapine FUMARATE 25 MG TABLET PO SCH ×3 (08:16→17:16)
[2021-06-12] MEDS: LITHIUM CARBONATE 300 MG CAPSULE PO SCH ×3 (08:17→17:18)
[2021-06-12] MEDS: GABAPENTIN 400 MG CAPSULE PO SCH ×3 (08:21→17:17)
[2021-06-12] MEDS: OMEGA-3/DHA/EPA/FISH OIL 1,000 MG CAPSULE PO SCH (08:21)
[2021-06-12] MEDS: CloZAPine 100 MG TABLET PO SCH ×2 (08:21→20:09)
[2021-06-12] MEDS: MULTIVITAMINS WITH MINERALS, THERAPEUTIC TABLET PO SCH (08:21)
[2021-06-12 08:34] VITALS: BP 100/60
[2021-06-12 10:00] VITALS: BP 108/74
[2021-06-12] MEDS: MAGNESIUM HYDROXIDE SUSPENSION 30 ML UDCUP PO PRN (16:09)
[2021-06-12 16:24] VITALS: BP 101/66
[2021-06-12] MEDS: QUEtiapine FUMARATE 100 MG TABLET PO PRN (17:57)
[2021-06-12] MEDS: ACETAMINOPHEN 325 MG TABLET PO PRN (19:53)
[2021-06-12] MEDS: MELATONIN 5 MG TABLET PO SCH (20:09)
[2021-06-13 00:35] VITALS: BP 114/74
[2021-06-13] MEDS: CloZAPine 100 MG TABLET PO SCH ×2 (08:07→21:28)
[2021-06-13] MEDS: OMEGA-3/DHA/EPA/FISH OIL 1,000 MG CAPSULE PO SCH (08:08)
[2021-06-13] MEDS: LITHIUM CARBONATE 300 MG CAPSULE PO SCH ×3 (08:08→17:00)
[2021-06-13] MEDS: QUEtiapine FUMARATE 25 MG TABLET PO SCH ×3 (08:08→17:00)
[2021-06-13] MEDS: MULTIVITAMINS WITH MINERALS, THERAPEUTIC TABLET PO SCH (08:08)
[2021-06-13] MEDS: DOCUSATE SODIUM 250 MG CAPSULE PO SCH ×2 (08:08→17:00)
[2021-06-13] MEDS: GABAPENTIN 400 MG CAPSULE PO SCH ×3 (08:12→17:00)
[2021-06-13 10:34] VITALS: BP 121/71
[2021-06-13] MEDS: QUEtiapine FUMARATE 100 MG TABLET PO PRN (13:00)
[2021-06-13 16:17] VITALS: BP 129/66
[2021-06-13] MEDS: MELATONIN 5 MG TABLET PO SCH (21:29)
[2021-06-14 04:12] VITALS: BP 116/70
[2021-06-14 08:25] VITALS: BP 118/74
[2021-06-14] MEDS: OMEGA-3/DHA/EPA/FISH OIL 1,000 MG CAPSULE PO SCH (08:29)
[2021-06-14] MEDS: DOCUSATE SODIUM 250 MG CAPSULE PO SCH ×2 (08:29→17:08)
[2021-06-14] MEDS: GABAPENTIN 400 MG CAPSULE PO SCH ×3 (08:29→17:08)
[2021-06-14] MEDS: QUEtiapine FUMARATE 25 MG TABLET PO SCH ×3 (08:29→17:08)
[2021-06-14] MEDS: LITHIUM CARBONATE 300 MG CAPSULE PO SCH ×3 (08:29→17:08)
[2021-06-14] MEDS: MULTIVITAMINS WITH MINERALS, THERAPEUTIC TABLET PO SCH (08:29)
[2021-06-14] MEDS: CloZAPine 100 MG TABLET PO SCH ×2 (08:32→20:04)
[2021-06-14 16:14] VITALS: BP 112/65
[2021-06-14] MEDS: QUEtiapine FUMARATE 100 MG TABLET PO PRN (17:08)
[2021-06-14] MEDS: MELATONIN 5 MG TABLET PO SCH (20:04)
[2021-06-15 04:41] VITALS: BP 126/71
[2021-06-15] MEDS: MULTIVITAMINS WITH MINERALS, THERAPEUTIC TABLET PO SCH (08:29)
[2021-06-15] MEDS: LITHIUM CARBONATE 300 MG CAPSULE PO SCH ×3 (08:29→16:11)
[2021-06-15] MEDS: OMEGA-3/DHA/EPA/FISH OIL 1,000 MG CAPSULE PO SCH (08:29)
[2021-06-15] MEDS: DOCUSATE SODIUM 250 MG CAPSULE PO SCH ×2 (08:29→16:11)
[2021-06-15] MEDS: CloZAPine 100 MG TABLET PO SCH ×2 (08:29→20:02)
[2021-06-15] MEDS: QUEtiapine FUMARATE 25 MG TABLET PO SCH ×3 (08:29→16:11)
[2021-06-15] MEDS: GABAPENTIN 400 MG CAPSULE PO SCH ×3 (08:29→16:11)
[2021-06-15 08:34] VITALS: BP 118/79
[2021-06-15 16:24] VITALS: BP 100/72
[2021-06-15] MEDS: QUEtiapine FUMARATE 100 MG TABLET PO PRN (18:08)
[2021-06-15] MEDS: MELATONIN 5 MG TABLET PO SCH (20:02)
[2021-06-16 00:11] VITALS: BP_SYST 111; BP_SYST 122; BP_DIAS 71; BP_DIAS 81
[2021-06-16 08:12] VITALS: BP 103/73
[2021-06-16] MEDS: QUEtiapine FUMARATE 25 MG TABLET PO SCH ×3 (09:14→16:30)
[2021-06-16] MEDS: CloZAPine 100 MG TABLET PO SCH ×2 (09:15→20:10)
[2021-06-16] MEDS: OMEGA-3/DHA/EPA/FISH OIL 1,000 MG CAPSULE PO SCH (09:15)
[2021-06-16] MEDS: LITHIUM CARBONATE 300 MG CAPSULE PO SCH ×3 (09:15→16:30)
[2021-06-16] MEDS: MULTIVITAMINS WITH MINERALS, THERAPEUTIC TABLET PO SCH (09:15)
[2021-06-16] MEDS: DOCUSATE SODIUM 250 MG CAPSULE PO SCH ×2 (09:15→16:30)
[2021-06-16] MEDS: GABAPENTIN 400 MG CAPSULE PO SCH ×3 (09:15→16:30)
[2021-06-16 16:07] VITALS: BP 104/62
[2021-06-16] MEDS: MELATONIN 5 MG TABLET PO SCH (20:09)
[2021-06-17 00:47] VITALS: BP 108/64
[2021-06-17 07:37] LABS: COVID AG,FIA SOURCE NASOPHARYNGEAL
[2021-06-17 08:57] VITALS: BP 91/65
[2021-06-17] MEDS: DOCUSATE SODIUM 250 MG CAPSULE PO SCH ×2 (09:00→16:35)
[2021-06-17] MEDS: QUEtiapine FUMARATE 25 MG TABLET PO SCH ×3 (09:01→16:35)
[2021-06-17] MEDS: LITHIUM CARBONATE 300 MG CAPSULE PO SCH ×3 (09:01→16:35)
[2021-06-17] MEDS: MULTIVITAMINS WITH MINERALS, THERAPEUTIC TABLET PO SCH (09:01)
[2021-06-17] MEDS: CloZAPine 100 MG TABLET PO SCH ×2 (09:01→20:09)
[2021-06-17] MEDS: OMEGA-3/DHA/EPA/FISH OIL 1,000 MG CAPSULE PO SCH (09:01)
[2021-06-17] MEDS: GABAPENTIN 400 MG CAPSULE PO SCH ×3 (09:01→16:35)
[2021-06-17 16:11] VITALS: BP 100/62
[2021-06-17] MEDS: MELATONIN 5 MG TABLET PO SCH (20:10)
[2021-06-18 00:03] VITALS: BP 103/69
[2021-06-18 08:16] VITALS: BP 99/66
[2021-06-18] MEDS: CloZAPine 100 MG TABLET PO SCH ×2 (09:10→20:48)
[2021-06-18] MEDS: GABAPENTIN 400 MG CAPSULE PO SCH ×3 (09:10→16:37)
[2021-06-18] MEDS: OMEGA-3/DHA/EPA/FISH OIL 1,000 MG CAPSULE PO SCH (09:10)
[2021-06-18] MEDS: DOCUSATE SODIUM 250 MG CAPSULE PO SCH ×2 (09:10→16:36)
[2021-06-18] MEDS: MULTIVITAMINS WITH MINERALS, THERAPEUTIC TABLET PO SCH (09:10)
[2021-06-18] MEDS: QUEtiapine FUMARATE 25 MG TABLET PO SCH ×3 (09:10→16:37)
[2021-06-18] MEDS: LITHIUM CARBONATE 300 MG CAPSULE PO SCH ×3 (09:10→16:36)
[2021-06-18 16:07] VITALS: BP 101/66
[2021-06-18] MEDS: QUEtiapine FUMARATE 100 MG TABLET PO PRN (19:16)
[2021-06-18] MEDS: MELATONIN 5 MG TABLET PO SCH (20:48)
[2021-06-19 00:25] VITALS: BP 103/71
[2021-06-19 08:20] VITALS: BP 100/66
[2021-06-19 08:27] LABS: BASOPHILS % (AUTO) 0.3 % (0.0-2.0); EOSINOPHILS % (AUTO) 5.3 % (1.0-6.0); HEMATOCRIT 38.1 % (36-46); HEMOGLOBIN 12.6 g/dL (12.0-16.0); LYMPHOCYTES # (AUTO) 3.7 K/uL (1.0-4.8); LYMPHOCYTES % (AUTO) 40.4 % (22.0-44.0); MEAN CORPUSCULAR HEMOGLOBIN 31.6 pg (26.0-34.0); MEAN CORPUSCULAR VOLUME 96 fL (80-100); MONOCYTES # (AUTO) 0.6 K/uL (0.1-1.0); MONOCYTES % (AUTO) 6.1 % (2.0-9.0); NEUTROPHILS # (AUTO) 4.4 K/uL (1.8-7.7); NEUTROPHILS % (AUTO) 47.9 % (40.0-70.0); PLATELET COUNT (AUTO) 339 K/uL (150-450); RED BLOOD CELL COUNT(AUTO) 3.98 MIL/uL (4.00-5.20); RED CELL DISTRIBUTION WIDTH 12.4 % (11.5-14.5)
[2021-06-19] MEDS: DOCUSATE SODIUM 250 MG CAPSULE PO SCH ×2 (09:03→16:02)
[2021-06-19] MEDS: CloZAPine 100 MG TABLET PO SCH ×2 (09:07→20:01)
[2021-06-19] MEDS: LITHIUM CARBONATE 300 MG CAPSULE PO SCH ×3 (09:09→16:02)
[2021-06-19] MEDS: MULTIVITAMINS WITH MINERALS, THERAPEUTIC TABLET PO SCH (09:09)
[2021-06-19] MEDS: GABAPENTIN 400 MG CAPSULE PO SCH ×3 (09:09→16:02)
[2021-06-19] MEDS: QUEtiapine FUMARATE 25 MG TABLET PO SCH ×3 (09:09→16:02)
[2021-06-19] MEDS: OMEGA-3/DHA/EPA/FISH OIL 1,000 MG CAPSULE PO SCH (09:15)
[2021-06-19 16:01] VITALS: BP 110/71
[2021-06-19] MEDS: MELATONIN 5 MG TABLET PO SCH (20:01)
[2021-06-20 00:45] VITALS: BP 102/62
[2021-06-20 08:02] VITALS: BP 101/63
[2021-06-20] MEDS: GABAPENTIN 400 MG CAPSULE PO SCH ×3 (09:28→16:23)
[2021-06-20] MEDS: OMEGA-3/DHA/EPA/FISH OIL 1,000 MG CAPSULE PO SCH (09:28)
[2021-06-20] MEDS: MULTIVITAMINS WITH MINERALS, THERAPEUTIC TABLET PO SCH (09:28)
[2021-06-20] MEDS: QUEtiapine FUMARATE 25 MG TABLET PO SCH ×3 (09:28→16:22)
[2021-06-20] MEDS: DOCUSATE SODIUM 250 MG CAPSULE PO SCH ×2 (09:28→16:22)
[2021-06-20] MEDS: LITHIUM CARBONATE 300 MG CAPSULE PO SCH ×3 (09:28→16:22)
[2021-06-20] MEDS: CloZAPine 100 MG TABLET PO SCH ×2 (09:29→21:01)
[2021-06-20 16:26] VITALS: BP 106/68
[2021-06-20] MEDS: MELATONIN 5 MG TABLET PO SCH (21:00)
[2021-06-21 00:43] VITALS: BP 106/64
[2021-06-21 08:22] VITALS: BP 108/72
[2021-06-21] MEDS: OMEGA-3/DHA/EPA/FISH OIL 1,000 MG CAPSULE PO SCH (08:24)
[2021-06-21] MEDS: DOCUSATE SODIUM 250 MG CAPSULE PO SCH ×2 (08:24→16:04)
[2021-06-21] MEDS: QUEtiapine FUMARATE 25 MG TABLET PO SCH ×3 (08:26→16:04)
[2021-06-21] MEDS: LITHIUM CARBONATE 300 MG CAPSULE PO SCH ×3 (08:26→16:04)
[2021-06-21] MEDS: CloZAPine 100 MG TABLET PO SCH ×2 (08:26→20:01)
[2021-06-21] MEDS: MULTIVITAMINS WITH MINERALS, THERAPEUTIC TABLET PO SCH (08:26)
[2021-06-21] MEDS: GABAPENTIN 400 MG CAPSULE PO SCH ×3 (08:26→16:04)
[2021-06-21 16:07] VITALS: BP 101/71
[2021-06-21] MEDS: MELATONIN 5 MG TABLET PO SCH (20:01)
[2021-06-22 05:44] VITALS: BP 109/57
[2021-06-22 08:08] VITALS: BP 107/73
[2021-06-22] MEDS: QUEtiapine FUMARATE 25 MG TABLET PO SCH ×3 (08:45→16:04)
[2021-06-22] MEDS: CloZAPine 100 MG TABLET PO SCH ×2 (08:45→20:06)
[2021-06-22] MEDS: LITHIUM CARBONATE 300 MG CAPSULE PO SCH ×3 (08:45→16:04)
[2021-06-22] MEDS: MULTIVITAMINS WITH MINERALS, THERAPEUTIC TABLET PO SCH (08:45)
[2021-06-22] MEDS: DOCUSATE SODIUM 250 MG CAPSULE PO SCH ×2 (08:45→16:04)
[2021-06-22] MEDS: GABAPENTIN 400 MG CAPSULE PO SCH ×3 (08:45→16:04)
[2021-06-22] MEDS: OMEGA-3/DHA/EPA/FISH OIL 1,000 MG CAPSULE PO SCH (08:45)
[2021-06-22 16:09] VITALS: BP 108/67
[2021-06-22] MEDS: MELATONIN 5 MG TABLET PO SCH (20:06)
[2021-06-23 01:38] VITALS: BP 105/64
[2021-06-23 07:28] LABS: COVID AG,FIA SOURCE NASOPHARYNGEAL
[2021-06-23 08:17] VITALS: BP 103/77
[2021-06-23] MEDS: CloZAPine 100 MG TABLET PO SCH ×2 (08:22→20:25)
[2021-06-23] MEDS: DOCUSATE SODIUM 250 MG CAPSULE PO SCH ×2 (08:23→16:05)
[2021-06-23] MEDS: LITHIUM CARBONATE 300 MG CAPSULE PO SCH ×3 (08:23→16:05)
[2021-06-23] MEDS: QUEtiapine FUMARATE 25 MG TABLET PO SCH ×3 (08:23→16:05)
[2021-06-23] MEDS: GABAPENTIN 400 MG CAPSULE PO SCH ×3 (08:23→16:05)
[2021-06-23] MEDS: MULTIVITAMINS WITH MINERALS, THERAPEUTIC TABLET PO SCH (08:23)
[2021-06-23] MEDS: OMEGA-3/DHA/EPA/FISH OIL 1,000 MG CAPSULE PO SCH (08:23)
[2021-06-23 16:08] VITALS: BP 108/74
[2021-06-23] MEDS: QUEtiapine FUMARATE 100 MG TABLET PO PRN (18:15)
[2021-06-23] MEDS: MELATONIN 5 MG TABLET PO SCH (20:25)
[2021-06-24 05:46] VITALS: BP 104/63
[2021-06-24 07:59] LABS: BASOPHILS % (AUTO) 0.3 % (0.0-2.0); EOSINOPHILS % (AUTO) 7.2 % (1.0-6.0); HEMATOCRIT 35.9 % (36-46); LYMPHOCYTES # (AUTO) 3.2 K/uL (1.0-4.8); LYMPHOCYTES % (AUTO) 39.2 % (22.0-44.0); MEAN CORPUSCULAR HEMOGLOBIN 31.6 pg (26.0-34.0); MEAN CORPUSCULAR HGB CONC 33.5 G/dL (31.0-37.0); MEAN CORPUSCULAR VOLUME 94 fL (80-100); MONOCYTES # (AUTO) 0.6 K/uL (0.1-1.0); MONOCYTES % (AUTO) 6.8 % (2.0-9.0); NEUTROPHILS # (AUTO) 3.8 K/uL (1.8-7.7); NEUTROPHILS % (AUTO) 46.5 % (40.0-70.0); PLATELET COUNT (AUTO) 312 K/uL (150-450); RED BLOOD CELL COUNT(AUTO) 3.81 MIL/uL (4.00-5.20); RED CELL DISTRIBUTION WIDTH 12.2 % (11.5-14.5)
[2021-06-24 08:14] VITALS: BP 104/61
[2021-06-24 08:19] LABS: ANION GAP 5 mmol/L (8-16); CARBON DIOXIDE 28 mmol/L (22-29); CHLORIDE 106 mmol/L (98-107); CREATININE 0.67 mg/dL (0.60-1.30); GLUCOSE,RANDOM 90 mg/dL (70-110); POTASSIUM 4.2 mmol/L (3.5-5.1); SODIUM SERUM 139 mmol/L (136-145); UREA NITROGEN, BLOOD 14 mg/dL (7-18)
[2021-06-24 08:20] LABS: ALANINE AMINOTRANSFERASE 28 U/L (12-78); ALBUMIN 3.3 g/dL (3.4-5.0); ALKALINE PHOSPHATASE 83 U/L (46-116); ASPARTATE AMINOTRANSFERASE 19 U/L (15-37); BILIRUBIN,TOTAL 0.3 mg/dL (0.1-1.0); CALCIUM, TOTAL 9.1 mg/dL (8.8-10.5); GLOMERULAR FILTR. RATE CALC > 60 mL/min (>60); TOTAL PROTEIN, SERUM 6.9 g/dL (6.4-8.2)
[2021-06-24] MEDS: OMEGA-3/DHA/EPA/FISH OIL 1,000 MG CAPSULE PO SCH (08:20)
[2021-06-24] MEDS: MULTIVITAMINS WITH MINERALS, THERAPEUTIC TABLET PO SCH (08:20)
[2021-06-24] MEDS: CloZAPine 100 MG TABLET PO SCH ×2 (08:21→20:08)
[2021-06-24] MEDS: GABAPENTIN 400 MG CAPSULE PO SCH ×3 (08:22→16:18)
[2021-06-24] MEDS: QUEtiapine FUMARATE 25 MG TABLET PO SCH ×3 (08:22→16:18)
[2021-06-24] MEDS: LITHIUM CARBONATE 300 MG CAPSULE PO SCH ×3 (08:22→16:18)
[2021-06-24] MEDS: DOCUSATE SODIUM 250 MG CAPSULE PO SCH ×2 (08:22→16:18)
[2021-06-24] MEDS ORDERED: LITH300C3 PO (09:04)
[2021-06-24] MEDS ORDERED: QUET25TA PO (09:05)
[2021-06-24] MEDS ORDERED: CLOZ100T32 PO ×2 (09:06)
[2021-06-24] MEDS ORDERED: DOCU-350 PO (09:07)
[2021-06-24] MEDS ORDERED: GABA-1201 PO (09:07)
[2021-06-24] MEDS ORDERED: OMEG-135 PO (09:08)
[2021-06-24] MEDS ORDERED: MELA5TAB40 PO (09:08)
[2021-06-24] MEDS ORDERED: NALT50TA PO (16:00)
[2021-06-24 16:15] VITALS: BP 113/69
[2021-06-24] MEDS: QUEtiapine FUMARATE 100 MG TABLET PO PRN (17:56)
[2021-06-24] MEDS: MELATONIN 5 MG TABLET PO SCH (20:08)
[2021-06-25 00:42] VITALS: BP 107/63
[2021-06-25] MEDS: QUEtiapine FUMARATE 25 MG TABLET PO SCH (08:03)
[2021-06-25] MEDS: LITHIUM CARBONATE 300 MG CAPSULE PO SCH (08:03)
[2021-06-25] MEDS: OMEGA-3/DHA/EPA/FISH OIL 1,000 MG CAPSULE PO SCH (08:03)
[2021-06-25] MEDS: MULTIVITAMINS WITH MINERALS, THERAPEUTIC TABLET PO SCH (08:03)
[2021-06-25] MEDS: DOCUSATE SODIUM 250 MG CAPSULE PO SCH (08:03)
[2021-06-25] MEDS: GABAPENTIN 400 MG CAPSULE PO SCH (08:03)
[2021-06-25] MEDS: CloZAPine 100 MG TABLET PO SCH (08:05)
[2021-06-25 08:11] VITALS: BP 104/69
== END 2021-06-25 09:25 | DRG 885 ==
LOC: EMS 17:27 → B3A 05-19 04:00 → B2S 06-15 23:16
PROVIDERS: ADMIT Psychiatry & Neurology Psychiatry; ATTEND Psychiatry & Neurology Psychiatry
DX: F20.9 Schizophrenia, unspecified (principal); F12.90 Cannabis use, unspecified, uncomplicated; Z20.822 Contact with and (suspected) exposure to COVID-19; K59.00 Constipation, unspecified; F41.9 Anxiety disorder, unspecified; J44.9 Chronic obstructive pulmonary disease, unspecified; Z55.9 Problems related to education and literacy, unspecified; Z59.9 Problem related to housing and economic circumstances, unspecified; Z63.9 Problem related to primary support group, unspecified; Z65.3 Problems related to other legal circumstances; Z87.891 Personal history of nicotine dependence; Z91.14 Patient's other noncompliance with medication regimen; Z88.8 Allergy status to other drugs, medicaments and biological substances
CPT/HCPCS: 80053; 80061; 80159; 80178; 82040; 83036; 84439; 84443; 84702; 84703; 85025; 86592; 99285; G0480; J1200; J1630; J2060; J3535; Q9967

== ENCOUNTER 2024-11-08 21:06 | Emergency (ER) | payer MEDICARE, OTHER ==
[~2024-11-08] VITALS: Ht 172.7 cm; Wt 88.6 kg
[~2024-11-08 21:06] MED LIST changes: +CLOZ100T12 PO; +DOCU-412 PO; +GABA-1201 PO; -HALO10 PO; +MELA5TAB40 PO; +NALT50TA6 PO; +OMEG-135 PO; +QUET25TA PO
[2024-11-08 21:11] VITALS: BP 112/76; PULSE 96; RESP 18; TEMP 97.9; O2SAT 96
== END 2024-11-08 21:54 | disposition left against medical advice (07) ==
LOC: EMS 21:06
DX: R44.0 Auditory hallucinations (principal); R44.1 Visual hallucinations; Z53.21 Procedure and treatment not carried out due to patient leaving prior to being seen by health care provider
CPT/HCPCS: 82962